=== PATIENT | female | born 1995 | race Caucasian/White ===

== ENCOUNTER 2019-01-19 17:51 | Emergency (ER) | payer OTHER ==
[2019-01-19] MEDS ORDERED: VENLAFAXINE HCL 75 MG CAP.SR.24H PO ONE (20:12)
[2019-01-19 21:18] VITALS: BP 110/60
--- NOTE | 2019-01-23 03:42 | ER Document Report ---
Entered by JANKI COX SCRIBE 01/19/192033 Acting as scribe for:DENNIS VILLELA DO ED General - General Chief Complaint: Nausea/Vomiting Stated Complaint: DIZZY, NAUSEA Time Seen by Provider: 01/19/19 19:07 Primary Care Provider: MATT,RIZWAN [Primary Care Provider] - Follow up in 3-5 days Mode of Arrival: Ambulatory Information source: Patient Notes: Patient is a 23-year-old female that presents to the emergency department today for an effexor prescription. Patient states "the movers packed my medicine", stating she is moving to [place]. Patient states she has missed the last 2 days and she "feels weird". Patient states this has happened before when she stopped taking Effexor. Patient describes "feeling weird" as nausea and dizziness. Past Medical History - General Information source: Patient - Social History Smoking Status: Never Smoker Cigarette use (# per day): No Frequency of alcohol use: Social Drug Abuse: None Lives with: Family Family History: Reviewed & Not Pertinent Patient has suicidal ideation: No Patient has homicidal ideation: No Psychiatric Medical History: Reports: Hx Depression - Anxiety/ Depression Surgical Hx: Negative Review of Systems - Review of Systems Constitutional: See HPI, Other - med refill EENT: No symptoms reported Cardiovascular: See HPI, Dizziness Respiratory: No symptoms reported Gastrointestinal: See HPI, Nausea Genitourinary: No symptoms reported Female Genitourinary: No symptoms reported Musculoskeletal: No symptoms reported Skin: No symptoms reported Hematologic/Lymphatic: No symptoms reported Neurological/Psychological: No symptoms reported -: Yes All other systems reviewed and negative Physical Exam - Vital signs Vitals: Temp Pulse Resp BP Pulse Ox 98.8 F 79 18 112/59 L 100 01/19/19 17:56 01/19/19 17:56 01/19/19 17:56 01/19/19 17:56 01/19/19 17:56 - Notes Notes: Physical Exam: General: Alert, appears well. HEENT: Normocephalic. Atraumatic. PERRL. Extraocular movements intact. Oropharynx clear. Neck: Supple. Non-tender. Respiratory: No respiratory distress. Clear and equal breath sounds bilaterally. Cardiovascular: Regular rate and rhythm. Abdominal: Normal Inspection. Non-tender. No distension. Normal Bowel Sounds. Back: No gross abnormalities. Extremities: Moves all four extremities. Upper extremities: Normal inspection. Normal ROM. Lower extremities: Normal inspection. No edema. Normal ROM. Neurological: Normal cognition. AAOx4. Normal speech. Psychological: Normal affect. Normal Mood. Skin: Warm. Dry. Normal color. Course - Re-evaluation Re-evalutation: Patient is a 23-year-old female who comes in stating that she is feeling weird and nauseated. Denies as she uses control. hCG negative. Patient is traveling and ran out of Effexor. States that this is happened before when she is run out of Effexor and she needs to establish with a new primary care doctor where she is moving. Otherwise appears well. Short term prescription of Effexor prescribed. Taking p.o. Return if any worsening or concerning symptoms. Stable for discharge. - Vital Signs Vital signs: Temp Pulse Resp BP Pulse Ox 98.6 F 80 16 110/60 100 01/19/19 21:17 01/19/19 21:17 01/19/19 21:17 01/19/19 21:17 01/19/19 17:56 Discharge - Discharge Clinical Impression: Encounter for medication refill Disposition: HOME, SELF-CARE Prescriptions: Venlafaxine HCl ER [Effexor Xr 75 mg Cap.sr] 150 mg PO DAILY #40 cap.sr.24h Referrals: [facility] [Primary Care Provider] - Follow up in 3-5 days I personally performed the services described in the documentation, reviewed and edited the documentation which was dictated to the scribe in my presence, and it accurately records my words and actions.
== END 2019-01-19 21:17 | disposition home or self-care (01) ==
LOC: ER 17:51
DX: R11.2 Nausea with vomiting, unspecified (principal); R42 Dizziness and giddiness
CPT/HCPCS: 81025; 99284